=== PATIENT | male | born 1960 | race Hispanic/Latino ===

== ENCOUNTER 2017-08-02 16:46 | Emergency (ER) | payer MEDICARE, OTHER ==
[2017-08-02 17:14] LABS: BASOPHILS % (AUTO) 0.7 % (0.0-5.0); EOSINOPHILS % (AUTO) 5.1 % (0.0-8.0); HEMATOCRIT 44.8 % (42-54); LYMPHOCYTES % (AUTO) 32.4 % (21.0-51.0); MEAN CORPUSCULAR HEMOGLOBIN 29.2 pg (27.0-33.0); MEAN CORPUSCULAR HGB CONC 34.4 g/dL (32.0-36.0); MEAN CORPUSCULAR VOLUME 84.9 fL (79-99); MONOCYTES % (AUTO) 7.9 % (3.0-13.0); NEUTROPHILS % (AUTO) 53.9 % (40.0-77.0); PLATELET COUNT (AUTO) 288 K/uL (130-400); RED BLOOD CELL COUNT(AUTO) 5.27 MIL/uL (4.50-6.20); RED CELL DISTRIBUTION WIDTH 14.8 % (11.0-15.5); WHITE BLOOD COUNT (AUTO) 10.2 K/uL (4.8-10.8)
[2017-08-02 17:31] LABS: POTASSIUM 4.1 mmol/L (3.5-5.1)
[2017-08-02 17:32] LABS: INR 0.92 (0.85-1.15); PARTIAL THROMBOPLASTIN TIME 23.8 SEC (26.3-35.5); PROTHROMBIN TIME 9.7 SEC (9.6-11.6)
[2017-08-02 17:36] LABS: ALBUMIN 3.6 g/dL (3.5-5.0); BILIRUBIN,TOTAL 0.2 mg/dL (0.2-1.0); TOTAL PROTEIN, SERUM 7.6 g/dL (6.0-8.3)
[2017-08-02] MEDS ORDERED: DOCUSATE SODIUM 100 MG CAP PO ONE (18:35)
== END 2017-08-02 18:52 | disposition home or self-care (01) ==
LOC: EDH 16:46
DX: K57.30 Diverticulosis of large intestine without perforation or abscess without bleeding (principal); K62.5 Hemorrhage of anus and rectum; K59.00 Constipation, unspecified; Z88.0 Allergy status to penicillin
CPT/HCPCS: 36415; 74176; 80053; 82270; 85025; 85610; 85730

== ENCOUNTER 2021-04-10 09:31 | Emergency (ER) | payer MEDICARE, SELFPAY ==
[~2021-04-10] VITALS: Ht 162.6 cm; Wt 86.2 kg
[2021-04-10] MEDS ORDERED: IBUP-2070 PO (10:27)
[2021-04-10] MEDS ORDERED: CYCL10TA16 PO (10:27)
[2021-04-10] MEDS ORDERED: KETOROLAC 15MG/ML VIAL (15MG/ML) IM ONE (10:30)
[2021-04-10] MEDS ORDERED: CYCLOBENZAPRINE HCL 10 MG TABLET PO ONE (10:30)
[2021-04-10 10:42] VITALS: BP 136/80
== END 2021-04-10 10:43 | disposition home or self-care (01) ==
LOC: EDH 09:31
DX: M62.838 Other muscle spasm (principal); M54.2 Cervicalgia; Z90.49 Acquired absence of other specified parts of digestive tract; Z88.0 Allergy status to penicillin
CPT/HCPCS: 96372; 99284; J1885